=== PATIENT | female | born 1965 ===

== ENCOUNTER 2018-10-21 07:43 | Outpatient (CLI) | payer OTHER ==
[~2018-10-21 07:43] MED LIST: LYRICA225 MG PO; LYRICA300 MG PO; MIRAPEX0.5 MG PO; NEURONTIN800 MG PO; PERCOCET 10-3251 TAB PO; ULTRAM50 MG PO; [UNRECOGNIZED DRUG - CODE] MC
== END 2018-10-21 07:49 | disposition home or self-care (01) ==
LOC: SONOGRAMA 07:43
DX: E04.1 Nontoxic single thyroid nodule (principal)